=== PATIENT | female | born 2000 | race African-American/Black ===

== ENCOUNTER 2023-04-03 19:38 | Emergency (ER) | payer OTHER ==
[2023-04-03] MEDS ORDERED: predniSONE 20 MG TAB ONE (21:52)
[2023-04-03] MEDS ORDERED: Ibuprofen 200 MG TAB ONE (21:52)
== END 2023-04-03 23:53 | disposition home or self-care (01) ==
LOC: ERS 19:38
DX: J03.90 Acute tonsillitis, unspecified (principal); B34.9 Viral infection, unspecified; Z20.822 Contact with and (suspected) exposure to COVID-19
CPT/HCPCS: 87081; 87430; 87635; 99283; J7512